=== PATIENT | female | born 1960 | race Caucasian/White ===

== ENCOUNTER 2019-08-06 10:26 | Emergency (ER) | payer OTHER ==
[~2019-08-06] VITALS: Ht 180.3 cm; Wt 71.7 kg
[~2019-08-06 10:26] MED LIST: DAILY VITAMIN1 EAC2 PO; NORCO 5-325 TA1 EACH PO
[2019-08-06] MEDS ORDERED: LISINOPRIL10 MG PO (12:50)
--- NOTE | 2019-08-07 12:33 | EKG ---
[facility] [address] [facility] [place] [address] Signed Normal sinus rhythm Left anterior fascicular block Anterior infarct , age undetermined Abnormal ECG No previous ECGs available Confirmed by DULCE SAN MD ([id number]) on 08/07/2019 12:32:56 PM Electronically Signed By: DULCE SAN MD 08/07/19 1233 PATIENT NAME: MERY PRADHAN Electrocardiogram DATE OF : 60 PHYSICIAN: DULCE SAN MD REPORT #: [id number] REPORT IS CONFIDENTIAL AND NOT TO BE RELEASED WITHOUT AUTHORIZATION
== END 2019-08-06 13:15 | disposition home or self-care (01) ==
LOC: ED 10:26
DX: I10 Essential (primary) hypertension (principal); D75.1 Secondary polycythemia; Z88.0 Allergy status to penicillin
CPT/HCPCS: 71046; 80053; 81001; 84484; 85025; 93005; 93010; 99284-25

== ENCOUNTER 2019-10-06 12:42 | Day surgery (SDC) | payer OTHER ==
[~2019-10-06] VITALS: Ht 180.3 cm; Wt 70.3 kg
[~2019-10-06 12:42] MED LIST changes: +ASPIR 8181 MG PO; +DIOVAN80 MG PO; +LISINOPRIL10 MG PO
--- NOTE | 2019-10-06 20:17 | OR ---
[facility] [address] [place], [place] [address] Signed DATE OF OPERATION: 10/06/2019 SURGEON: Jessica Malik MD PREOPERATIVE DIAGNOSIS: History of tubular adenomas x4, 2018. POSTOPERATIVE DIAGNOSIS: Small polyp right colon (excised). PROCEDURE: Total colonoscopy to cecum with cold snare polypectomy x1. ANESTHESIA: Intravenous sedation, fentanyl 150 mcg, Versed 7 mg. INDICATION: This 58-year-old white woman is a patient of Dr. Trev Wheatley in [place], [place] and underwent colonoscopy by pr in 2018. At that time, she was found to have 4 tubular adenomas. All the polyps were excised. The patient has had development of polycythemia vera, for which, she has had three phlebotomy experiences so far. She is admitted at this time to undergo surveillance colonoscopy in the short-term based on the number of polyps she had previously. The risk of bleeding, infection, and perforation were reviewed with her. She understands and wished to proceed. Notably, she has no family history of colon cancer. FINDINGS: Her bowel prep was excellent. Colon was redundant. The colonoscopy was undertaken to the cecum without question. She had one small sessile polyp in the distal ascending colon, which was excised with cold snare polypectomy technique. There were no other findings of concern. DESCRIPTION OF PROCEDURE: The patient was brought to the endoscopy suite and placed in lateral decubitus position and given intravenous sedation to the point of slurred speech and nystagmus. Full cardiopulmonary monitoring was maintained. After satisfactory sedation, a digital rectal examination was found to be normal. The Olympus video colonoscope was passed in the rectum and manipulated throughout the colon. She had colonic redundancy in the region of the transverse and right colon. Ultimately, the scope was passed to the cecum itself. The ileocecal valve and appendiceal orifice were well identified and normal. Electronically Signed By: JESSICA MALIK MD 10/06/192016 PATIENT NAME: MERY PRADHAN OPERATIVE REPORT DATE OF : 60 REPORT #: [id number] PHYSICIAN: JESSICA MALIK MD PCP: TREV WHEATLEY MD REPORT IS CONFIDENTIAL AND NOT TO BE RELEASED WITHOUT AUTHORIZATION [facility] [address] [place], [place] [address] Signed The scope was withdrawn from that point. Careful inspection showed no sign of abnormality until approximately the distal ascending colon where a small sessile polyp was noted. This had features consistent with adenomatous change based on narrow band imaging. The lesion was excised with cold snare technique and additional excision with cold morcellation technique. Further withdrawal of scope showed no other signs of polyps or other abnormality. Retroflexed view was normal. Scope was removed. The patient was taken to recovery room in good condition. CONCLUDING DIAGNOSIS: Small polyp of distal ascending colon. PLAN: Recommend repeat colonoscopy in 5 years sooner if clinically indicated. She will return to the ongoing care of Celia Cooper [place]. MD FLACO Diggs/ELEAZAR /[id number] cc: Trev Wheatley MD Copies: TREV WHEATLEY MD ~ Electronically Signed By: JESSICA MALIK MD 10/06/192016 PATIENT NAME: MERY PRADHAN OPERATIVE REPORT DATE OF : 60 REPORT #: [id number] PHYSICIAN: JESSICA MALIK MD PCP: TREV WHEATLEY MD REPORT IS CONFIDENTIAL AND NOT TO BE RELEASED WITHOUT AUTHORIZATION
--- NOTE | 2019-10-09 14:40 | PATH ---
[facility] [address] [id number] Signed SPECIMEN(S): A ASCENDING POLYP SPECIMEN SOURCE: A. ASCENDING POLYP CLINICAL HISTORY: Pre: History of colon polyp. Post: Polyp x 1. MICROSCOPIC DESCRIPTION: Histologic sections of all submitted blocks are examined by light microscopy. These findings, together with the gross examination, support the pathologic diagnosis. FINAL PATHOLOGIC DIAGNOSIS: Mucosa, ascending colon, biopsy: - Tubular adenoma. LJA:caw:C2NR GROSS DESCRIPTION: The specimen, labeled "TS, #1," is received in formalin and consists of one crump soft tissue fragment that measures 0.3 cm in greatest dimension. The specimen is entirely submitted in cassette (A1). FB (under the direct supervision of a pathologist) The Gross Description was prepared using a voice recognition system. The report was reviewed for accuracy; however, sound-alike word errors, addition and/or deletions may occur. If there is any question about this report, please contact Client Services. PERFORMING LABORATORY: The technical component was performed by [facility], [address] [place] [id number] (Train Master: Sumi Mahmood MD; CLIA# [id number]). Professional interpretation was performed by [facility], [address] [address] (Train Master: Elias Anguiano MD; CLIA# [id number]). Diagnostician: Elias Anguiano MD Pathologist Electronically Signed 10/09/2019 Copies: PATIENT NAME: MERY PRADHAN PATHOLOGY DATE OF : 60 REPORT #: [id number] PHYSICIAN: ESTEFANY PATHOLOGY PCP: TREV WHEATLEY MD REPORT IS CONFIDENTIAL AND NOT TO BE RELEASED WITHOUT AUTHORIZATION [address] [address] Signed ~ PATIENT NAME: MERY PRADHAN PATHOLOGY DATE OF : 60 REPORT #: [id number] PHYSICIAN: ESTEFANY PATHOLOGY PCP: TREV WHEATLEY MD REPORT IS CONFIDENTIAL AND NOT TO BE RELEASED WITHOUT AUTHORIZATION
== END 2019-10-06 16:05 | disposition home or self-care (01) ==
LOC: OPS 12:42 → DS 12:53 → OPS 14:00 → DS 14:00 → OPS 16:05
PROVIDERS: Surgery
PROC: 0DBK8ZZ Excision of Ascending Colon, Via Natural or Artificial Opening Endoscopic (ICD-10-PCS; principal; 2019-10-06 14:00)
DX: Z12.11 Encounter for screening for malignant neoplasm of colon (principal); D12.2 Benign neoplasm of ascending colon; D45 Polycythemia vera; I10 Essential (primary) hypertension; Z86.010 Personal history of colon polyps; Z88.0 Allergy status to penicillin; Z87.891 Personal history of nicotine dependence; Z79.82 Long term (current) use of aspirin; Z79.899 Other long term (current) drug therapy
CPT/HCPCS: 99153; G0500; J2250; J3010; J7121

== ENCOUNTER 2019-10-23 10:44 | Day surgery (SDC) | payer OTHER ==
--- NOTE | 2019-10-23 12:30 | NUR ---
10/23/19 1230 Reyna Blake 1226 PT ARRIVED TO PACU ON 2L VIA NC, PT WAKES TO VERBAL STIMULI AND IS REORIENTED TO PACU. PT BACK TO SLEEP. PT LAYING IN PRONE. RESP EVEN AND UNLABORED.
--- NOTE | 2019-10-27 18:00 | PATH ---
[facility] [address] [facility] [place], [place] [address] Signed THIS IS AN ADDENDUM REPORT SPECIMEN(S): A BONE MARROW - CORE SPECIMEN(S): B BONE MARROW - ASPIRATION SPECIMEN(S): C COMPREHENSIVE FLOW CYTOMETRY ONLY, BM ASP EDTA CLINICAL HISTORY: 59-year-old woman with polycythemia and thrombocytosis. DIAGNOSIS SUMMARY: A. Peripheral blood, smear: - Moderate thrombocytosis. - Absolute mature neutrophilia. - Mild erythrocytosis with normochromic, microcytic erythrocytes. B. Bone marrow, aspirate, clot section, and core biopsy: - Mildly hypercellular marrow (55%) with trilineage hematopoiesis and occasional atypical megakaryocytes. - No increase in reticulin fibrosis (MF-0 of 3). - Absent iron stores, no ring sideroblasts. - See Diagnostic Comment. DIAGNOSTIC COMMENT: The bone marrow biopsy is mildly hypercellular for age (55%) and demonstrate trilineage hematopoiesis with a relatively preserved M:E ratio of approximately 2:1. Occasional atypical megakaryocytes with hyperchromatic and abnormally segmented nuclei are present. An iron stain demonstrates absent iron stores and no ring sideroblasts. Blasts are not increased, and there is no significant reticulin fibrosis. The patient's history of polycythaemia vera, treated with phlebotomy, is noted, the current bone marrow findings would be compatible with this diagnosis. Essential thrombocythaemia was also considered given the borderline hypercellularity, however, the history of elevated hemoglobin level to 19.4 g/dL in the setting of low erythropoietin levels would be more in keeping with polycythaemia vera. The morphologic features are not typical of chronic myeloid leukemia. Karyotype studies and confirmatory JAK2 molecular studies are pending and results will be reported in an addendum. [facility]:smn:C2NR PATIENT NAME: MERY ANSARI PATHOLOGY DATE OF : 60 REPORT #: [id number] PHYSICIAN: ESTEFANY PATHOLOGY PCP: TREV WHEATLEY MD REPORT IS CONFIDENTIAL AND NOT TO BE RELEASED WITHOUT AUTHORIZATION [facility] [address] [place], [place] [address] Signed PERIPHERAL BLOOD: HEMOGRAM (10/23/2019): WBC 10.2 K/uL, RBC 5.56 M/uL, HGB 13.9 g/dL, HCT 42.9%, MCV 77.2 fL, MCH 25 pg, MCHC 32 g/dL, RDW 17.7%, PLT 864 K/uL. MANUAL DIFFERENTIAL COUNT (100 cells): Segmented neutrophils 73%, band neutrophils 3%, lymphocytes 17%, monocytes 3%, eosinophils 3%, basophils 1%. The red cells are mildly increased in number and are normochromic and microcytic. Anisopoikilocytosis is mild with occasional ovalocytes seen. Polychromasia is not increased. Leukocytes are normal in number. Neutrophils show generally normal granulation and lobation. Lymphocytes are small and mature, and include a minor subset of large granulocytes. Circulating blasts are not identified. Platelets are increased in number and include rare giant forms. BONE MARROW: BONE MARROW ASPIRATE: The bone marrow aspirate smears demonstrate adequate cellular spicules. Myeloids are present in adequate number and demonstrate full spectrum maturation. Erythroids are present in adequate number and demonstrate full spectrum maturation. No overt dysplasia is seen. Rare blasts are identified, but do not appear increased. A few scattered lymphocytes and plasma cells are seen as well. Megakaryocytes are adequate in number and include occasional forms with abnormally segmented nuclei. Megakaryocytes range in size from small to giant and some hyperlobated forms are seen. Smaller forms with distinctly separate nuclear lobes are present as well. MANUAL DIFFERENTIAL COUNT (200 cells): Blasts 0.5%, promyelocytes 0.5%, myelocytes 14%, metamyelocytes 17%, segs/bands 20%, erythroids 34%, lymphocytes 11%, monocytes 1%, eosinophils 1%, plasma cells 1%. BONE MARROW CORE BIOPSY AND ASPIRATE CLOT SECTION CELL BLOCK: The bone marrow core biopsy is mildly hypercellular for age (55%). There is trilineage hematopoiesis with a relatively preserved M:E ratio of approximately 2:1. Myeloids and erythroids demonstrate full spectrum maturation. Megakaryocytes are seen scattered throughout the marrow and in small loose clusters, and include occasional forms with hypersegmented nuclei. Blasts are not increased. Trabecular bone is normal. The bone marrow clot sections demonstrate numerous fragments of marrow with similar findings as the bone marrow core biopsy. A small well-circumscribed, non-paratrabecular lymphoid aggregate is also seen. SPECIAL STAINS (with adequate controls): PATIENT NAME: MERY ANSARI PATHOLOGY DATE OF : 60 REPORT #: [id number] PHYSICIAN: ESTEFANY HARRIS PCP: TREV WHEATLEY MD REPORT IS CONFIDENTIAL AND NOT TO BE RELEASED WITHOUT AUTHORIZATION [address] [address] Signed - Iron stain (aspirate smear): Iron stores are essentially absent, no ring sideroblasts. - Iron stain (clot section, block B1): Absent iron stores, no ring sideroblasts. - Reticulin stain (core biopsy, block A1): No significant reticulin fibrosis identified (MF-0 of 3) IMMUNOHISTOCHEMICAL STAINS (Block A1): - CD34: Very rare cells staining, no increase in blasts. - CD117:Few scattered cells staining, including darkly staining mast cells. - Myeloperoxidase: Highlights myeloid precursors, confirms M:E ratio. - CD71: Highlights erythroid precursors, confirms M:E ratio. IMMUNOHISTOCHEMICAL STAINS (Block B1): - CD3: Highlights scattered T-cells, lymphoid aggregate no longer seen on levels. - CD20: Highlights fewer interstitial B-cells, lymphoid aggregate no longer seen on levels. [facility] FLOW CYTOMETRY: Bone marrow, flow cytometry: - No increase in blasts. - No monotypic B-cell or aberrant T-cell population identified. - See Comment. COMMENT: Flow cytometry of this bone marrow specimen demonstrates no increase in CD34 or CD117 positive blasts. In addition, no evidence of an abnormal lymphocyte population is seen. Full interpretation of these results requires correlation with morphologic and clinical findings. FLOW CYTOMETRY ANALYSIS: FLOW DIFFERENTIAL (% Total CD45 vs. SSC gating): Myeloid 82%; Lymphoid 8%; Monocyte 2%; Dim CD45/Blast: 1%. Cell Count: 5.8 x 10*3/uL. POPULATION ANALYSIS: BLASTS: Analysis of the dim CD45 gate demonstrates 1% myeloblasts by CD34/CD117. LYMPHOID CELLS: The lymphocyte gate comprises 8% of total events and includes 74% T-cells with a CD4:CD8 ratio of 1.0:1 and normal delong T-cell antigen expression. 16% of lymphocytes are polyclonal B-cells with a kappa:lambda ratio of 1.6:1. The remainders are NK-cells. MYELOID CELLS: The myeloid population comprises 82% of the total events. No aberrant or immature immunophenotypic expression is detected. PATIENT NAME: MERY ANSARI PATHOLOGY DATE OF : 60 REPORT #: [id number] PHYSICIAN: ESTEFANY PATHOLOGY PCP: TREV WHEATLEY MD REPORT IS CONFIDENTIAL AND NOT TO BE RELEASED WITHOUT AUTHORIZATION [facility] [address] [place], [place] [address] Signed MONOCYTES: The monocyte population comprises 2% of the total events. Monocytes are not increased. No aberrant immunophenotypic expression is detected. PLASMA CELLS: 0.2% plasma cells are detected in the screening gate neg-dimCD45/CD38. Plasma cells are CD45 dim and positive for CD19. ANTIBODIES USED: KAPPA, LAMBDA, CD20, CD10, CD19, CD23, CD38, FMC7, CD16, CD56, CD8, CD5, CD2, CD4, CD7, CD3, CD14, CD33, CD13, HLADR, CD34, CD117, CD15, CD45: TOTAL ANTIBODIES USED: 24. TCS FINAL DIAGNOSIS PERFORMED BY: Leslie Wayne MD, Oct 26 2019 2:51PM CYTOGENETICS: Pending, to be reported by addendum. MOLECULAR / PCR: Pending, to be reported by addendum. GROSS DESCRIPTION: A. The specimen, labeled "Elan, bone core," is received in formalin and consists of a 3.1 cm, crump bone core. Submitted in (A1) following decalcification in Immunocal for 1 1/2 hours. B. The specimen, labeled "Ansari, clot," is received in formalin and consists of a 2.1 x 1.4 x 0.2 cm aggregate of blood clot. Entirely submitted in (B1). tn:MADIHA:claudine ADDITIONAL NOTES: Immunohistochemical and/or in situ hybridization studies were performed on this case with the appropriate positive controls that react as expected. This test was developed and its performance characteristics determined by [facility]. It has not been cleared or approved by the U.S. Food and Drug Administration. The FDA has determined that such clearance or approval is not necessary. This test is used for clinical purposes. It should not be regarded as investigational or for research. [facility] is certified under the Clinical Laboratory Improvement Amendments of 1988 (CLIA) as qualified to perform high complexity clinical laboratory testing. In this case, certain antibodies were performed by both immunohistochemistry and flow cytometry analysis because flow cytometry analysis did not fully explain all the light microscopic findings. Immunohistochemistry aided in the analysis. Both methods are deemed medically PATIENT NAME: MERY ANSARI PATHOLOGY DATE OF : 60 REPORT #: [id number] PHYSICIAN: ESTEFANY HARRIS PCP: TREV WHEATLEY MD REPORT IS CONFIDENTIAL AND NOT TO BE RELEASED WITHOUT AUTHORIZATION [address] [address] Signed necessary in this case. This test was developed and its performance characteristics determined by [facility]. It has not been cleared or approved by the US Food and Drug Administration. The FDA does not require this test to go through premarket FDA review. This test is used for clinical purposes. It should not be regarded as investigational or for research. This laboratory is certified under the Clinical Laboratory Improvement Amendments (CLIA) as qualified to perform high complexity clinical laboratory testing. PERFORMING LABORATORY: Professional interpretation was performed by [facility], [address] [facility] [place] [address] (Eligibility Supervisor: Archie Zamudio Jr., M.D., [facility]; CLIA#: [id number]). Professional interpretation was performed by [facility], [address] [facility] [place] [address] (Eligibility Supervisor: Archie Zamudio Jr., M.D., [facility]; CLIA#: [id number]). IMAGES: [id number]: [id number] A: [id number] REASON FOR ADDENDUM: To add results of additional testing. 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 - Clinical and histological correlation required for diagnosis. The mutation specific JAK2 V617F PCR assay can be used for monitoring purposes with a sensitivity of at least 1 in 1000 cells (0.1 %). The V617F mutation of the JAK2 (Janus kinase 2) gene has been described in polycythemia vera (PV), essential thrombocythemia (ET) and in primary myelofibrosis (PMF) cases [Larkin et al. The Lancet 2005: 1054 1061] [Humphrey et al. Cancer Cell 2005: 387-397]. The identification of the V617F JAK2 point mutation in myeloproliferative neoplasms (MPN) may be useful to assist diagnosis, PATIENT NAME: MERY ANSARI PATHOLOGY DATE OF : 60 REPORT #: [id number] PHYSICIAN: ESTEFANY PATHOLOGY PCP: TREV WHEATLEY MD REPORT IS CONFIDENTIAL AND NOT TO BE RELEASED WITHOUT AUTHORIZATION [address] [place], [place] [address] Signed classification and monitoring. Method: Utilizes quantitative real-time polymerase chain reaction (PCR) assay with specific primers for the JAK2 V617F point mutation. Genomic DNA was isolated from the specimen and quality and quantity were confirmed by RQ-PCR. Although molecular testing is highly accurate, rarely false-positive and false-negative diagnostic errors may occur. BZ/MARTINA/MRL The technical and professional components of the molecular analysis were performed at [facility] ([place], [place], case #[id number]). Detailed report is kept on file. Diagnostician: Leslie Wayne MD Pathologist Electronically Signed 10/27/2019 Copies: ~ PATIENT NAME: MERY ANSARI PATHOLOGY DATE OF : 60 REPORT #: [id number] PHYSICIAN: ESTEFANY HARRIS PCP: TREV WHEATLEY MD REPORT IS CONFIDENTIAL AND NOT TO BE RELEASED WITHOUT AUTHORIZATION
== END 2019-10-23 13:25 | disposition home or self-care (01) ==
LOC: OPS 10:44 → DS 10:46 → OPS 12:00 → DS 12:00 → OPS 13:25
PROVIDERS: Specialist
PROC: 079T3ZX Drainage of Bone Marrow, Percutaneous Approach, Diagnostic (ICD-10-PCS; 2019-10-23)
PROC: 07DR3ZX Extraction of Iliac Bone Marrow, Percutaneous Approach, Diagnostic (ICD-10-PCS; principal; 2019-10-23 12:00)
DX: D45 Polycythemia vera (principal); D47.3 Essential (hemorrhagic) thrombocythemia; I10 Essential (primary) hypertension; H11.439 Conjunctival hyperemia, unspecified eye; Z79.899 Other long term (current) drug therapy; Z79.82 Long term (current) use of aspirin; Z88.0 Allergy status to penicillin
CPT/HCPCS: 85025; 99152; 99153; J2250; J3010